=== PATIENT | male | born 1980 | race Two or more races ===

== ENCOUNTER 2016-12-19 01:39 | Emergency (ER) | payer BC ==
[~2016-12-19] VITALS: Ht 170.2 cm; Wt 82.5 kg
[~2016-12-19 01:39] MED LIST: IBUP-1542 PO
[2016-12-19 01:44] VITALS: Ht 170.2 cm; Wt 82.5 kg
[2016-12-19 03:10] LABS: URINE BLOOD (Dip) POC 2+ (NEGATIVE)
[2016-12-19] MEDS ORDERED: TAMS-14 PO (03:35)
--- NOTE | 2016-12-19 04:05 | ERD ---
ER Documentation Chief Complaint Date/Time DATE: 12/19/16 TIME: 04:01 Chief Complaint frequent urination x 3 weeks, seen at another er 3 weeks ago for same. HPI 36-year-old male presents with chief complaint of urinary frequency 3 weeks, but has worsened tonight. He denies dysuria, flank pain, fever, hematuria, penile discharge, and lesions on penis. Was seen at a different ER 3 weeks ago , where a CT scan was done showed that he had renal stones but he was told that they would pass on their own because they were not large in size. He is also seen his PCP multiple times and has been prescribed ciprofloxacin which he is currently on, and tamsulosin. He states that these medications are not providing relief of symptoms. ROS All systems reviewed and are negative except as per history of present illness. Medications Home Meds Active Scripts Tamsulosin Hcl* (Flomax*) 0.4 Mg Cap.er.24h, 0.4 MG PO BID, #30 CAP Prov:Ria Sun PA-C 12/19/16 Ibuprofen* (Motrin*) 600 Mg Tab, 600 MG PO Q6H Y for PAIN AND OR ELEVATED TEMP, #30 Prov:VLADIMIR CANDELARIA MD 03/07/15 Allergies Allergies: Coded Allergies: No Known Allergy (Unverified , 12/19/16) PMhx/Soc Medical and Surgical Hx: pt denies Surgical Hx History of Surgery: No Anesthesia Reaction: No Hx Neurological Disorder: No Hx Respiratory Disorders: No Hx Cardiac Disorders: No Hx Psychiatric Problems: No Hx Miscellaneous Medical Probl: Yes (kidney stones. prostate problems: on ditropan, flomax.) Hx Alcohol Use: No Hx Substance Use: No Hx Tobacco Use: No Smoking Status: Never smoker Physical Exam Vitals Vital Signs Date Time Temp Pulse Resp B/P Pulse Ox O2 Delivery O2 Flow Rate FiO2 12/19/16 01:44 97.8 52 20 123/62 96 Physical Exam GENERAL: Non-toxic. No apparent signs of distress. LUNGS: Clear to auscultation. No accessory muscle use. No wheezing, no crackles. No signs or symptoms of respiratory distress. HEART: Regular rate and rhythm. No murmurs, clicks, rubs or gallops. ABDOMEN: Soft, nontender and nondistended. Bowel sounds positive. No rebound or guarding. No gross peritoneal signs. No Sutherland or McBurney point tenderness. No gross masses. BACK: No midline tenderness, no costovertebral tenderness. EXTREMITIES: No peripheral cyanosis or edema. No focal pain or notable trauma. Full range of motion. Good capillary refill. NEURO: The patient moves all 4 extremities with 5/5 strength. Cranial nerves are grossly intact. Normal mental status for age. Good muscle tone. SKIN: There is no apparent rash, petechiae, erythema or swelling. Good skin turgor. Results 24 hrs Laboratory Tests Test 12/19/16 03:11 Bedside Urine pH (LAB) 7.0 Bedside Urine Protein (LAB) Negative Bedside Urine Glucose (UA) Negative Bedside Urine Ketones (LAB) Negative Bedside Urine Blood 2+ Bedside Urine Nitrite (LAB) Negative Bedside Urine Leukocyte Esterase (L Negative Procedures/MDM Patient has been seen multiple times and has had these symptoms for 3 weeks. His primary care physician prescribed the ciprofloxacin and Tamsulosin. He states he has a known history of kidney stones, and a CT scan was done just 3 weeks ago at a different ER. He denies any dysuria, hematuria, and fevers at this time. He appears to be in no acute distress at this time. He is afebrile with stable vital signs. I explained to the patient that his symptoms are likely to to prostate issues (possible BPH) versus kidney stones. In order a urine dip to rule out infection at this time, but suggested that either way she should follow-up with his PCP for referral to urologist due to duration of symptoms. Awaiting results of urine dip prior to further management. Urine dip: No leukocyte esterase, no nitrite, 2+ urine blood. May be due to history of renal stones. Explained to the patient that he has no signs of infection at this time. I suggested to continue taking his prescriptions prescribed by his PCP, he only has 1 pill of tamsulosin left side provided a refill for this. I suggest he follow with PCP for referral to urologist at this time low suspicion for prostatitis, UTI, pyelonephritis, and STI. Patient still for discharge and outpatient management. Advised to follow-up with PCP in 1 to days. Departure Diagnosis: Primary Impression: Urinary frequency Condition: Good Patient Instructions: Prostate Problems and Related Urinary Symptoms Additional Instructions: Call your primary care doctor TOMORROW for an appointment during the next 1-2 days.See the doctor sooner or return here if your condition worsens before your appointment time. Ria Sun PA-C Dec 19, 2016 04:05
== END 2016-12-19 04:18 | disposition left against medical advice (07) ==
LOC: FTE 01:39
DX: R35.0 Frequency of micturition (principal)
CPT/HCPCS: 81003; 99283

== ENCOUNTER 2017-11-08 23:39 | Emergency (ER) | END 2017-11-08 23:49 | disposition left against medical advice (07) ==

== ENCOUNTER 2018-09-03 06:46 | Emergency (ER) | payer BC ==
[~2018-09-03] VITALS: Ht 167.6 cm; Wt 87.8 kg
[~2018-09-03 06:46] MED LIST changes: +TAMS-14 PO
[2018-09-03 06:49] VITALS: BP 134/79; PULSE 90; RESP 20; Ht 167.6 cm; Wt 87.8 kg
[2018-09-03] MEDS ORDERED: D-ME473S2 PO (07:10)
[2018-09-03] MEDS ORDERED: AZIT250T PO (07:11)
--- NOTE | 2018-09-03 07:23 | ERD ---
ER Documentation Chief Complaint Chief Complaint Complains of cough and sore throat x 2 days HPI Patient is a 38-year-old male who presents to the ER for concerns of a cough and sore throat for the last 3 weeks. Patient states over the last 2 days his cough has become worse. Patient cough is dry in nature. Patient states he tried numerous ubpq-[id number] medications including DayQuil, NyQuil. Patient states he did go an urgent care 2 days ago he was given Tessalon Perles. He states that this medication is not helping with his symptoms. Patient states he was up throughout the night coughing. Patient denies any chest pain, shortness breath, nausea, vomiting, abdominal pain, leg swelling. Patient denies any fevers or chills. No recent travel. No hemoptysis. ROS All systems reviewed and are negative except as per history of present illness. Medications Home Meds Active Scripts Azithromycin* (Zithromax*) 250 Mg Tablet, 250 MG PO .ZPACK DIRECTED, #6 TAB TAKE 500 MG (2 TABS) THE FIRST DAY THEN 250 MG (1 TAB) DAYS 2-5 Prov:ERNESTINE OLVERA PA-C 09/03/18 Dextromethorphan Hb-Promethazine Hcl* (Promethazine DM* Syrup) 473 Ml Syrup, 5 ML PO Q6 PRN for COUGH, #4 OZ Prov:ERNESTINE OLVERA PA-C 09/03/18 Tamsulosin Hcl* (Flomax*) 0.4 Mg Cap.er.24h, 0.4 MG PO BID, #30 CAP Prov:Ria Sun PA-C 12/19/16 Ibuprofen* (Motrin*) 600 Mg Tab, 600 MG PO Q6H PRN for PAIN AND OR ELEVATED TEMP, #30 Prov:VLADIMIR CANDELARIA MD 03/07/15 Allergies Allergies: Coded Allergies: No Known Allergy (Unverified , 09/03/18) PMhx/Soc History of Surgery: No Anesthesia Reaction: No Hx Neurological Disorder: No Hx Respiratory Disorders: No Hx Cardiac Disorders: No Hx Psychiatric Problems: No Hx Miscellaneous Medical Probl: Yes (kidney stones. prostate problems: on ditropan, flomax.) Hx Alcohol Use: Yes (socially) Hx Substance Use: No Hx Tobacco Use: No Smoking Status: Never smoker FmHx Family History: No diabetes Physical Exam Vitals Vital Signs Date Temp Pulse Resp B/P (MAP) Pulse Ox O2 O2 Flow FiO2 Time Delivery Rate 09/03/18 97.4 90 20 134/79 95 06:49 (97) Physical Exam GENERAL: Well-developed, well-nourished male. Appears in no acute distress. HEAD: Normocephalic, atraumatic. EYES: Pupils are equally reactive bilaterally. EOMs grossly intact. No conjunctival erythema. ENT: Moist mucous membranes. No uvula deviation. No kissing tonsils. NECK: Supple. No meningismus. Normal range of motion of the neck. LUNG: Clear to auscultation bilaterally. No rhonchi, wheezing, rales or coarse breath sounds. HEART: Regular rate and rhythm. No murmurs, rubs or gallops EXTREMITIES: Equal pulses bilaterally. No peripheral clubbing, cyanosis or edema. No unilateral leg swelling. NEUROLOGIC: Alert and oriented. Moving all four extremities without any difficulty. Normal speech. Steady gait. SKIN: Normal color. Warm and dry. No rashes or lesions. Results 24 hrs Current Medications Medications Dose Sig/Peggy Start Time Status Last (Trade) Ordered Route PRN Stop Time Admin Dose Reason Admin 10 mg ONCE ONCE 09/03/18 09/03/18 Dexamethasone IM 07:30 09/03/18 07:14 (Decadron) 07:31 Procedures/MDM MEDICAL DECISION MAKING: This is a 38-year-old male presents ER for concerns of sore throat and cough for the last 3 weeks. Patient denied fevers. Patient was afebrile. Patient was not hypoxic. Patient denied recent travel. Cardiac exam was normal. Lung exam was normal. Patient denying chest pain, shortness of breath, leg swelling.. Patient was given Decadron here in the ER. Given these findings, the patients presentation is most consistent with acute bronchitis. I have a much lower clinical concern for acute coronary syndrome, pneumothorax, pneumonia, TB, influenza, pertussis, GERD, allergic rhinitis. Patient was nontoxic, vzs-hxz-rwywgnzck appearing prior to discharge. PRESCRIPTIONS: Z-Emmett, promethazine DM cough syrup DISCHARGE: At this time, patient is stable for discharge and outpatient management. I have instructed the patient to follow-up with his/her primary care physician in 1-2 days. If symptoms persist, patient may need to see a specialist for further examinations and testing. I have instructed the patient to promptly return to the ER at any time for any new or worsening symptoms including increased increased pain, fever, nausea, vomiting, numbness, shortness of breath, weakness, ongoing wheezing, retractions or LOC. The patient and/or family expressed understanding of and agreement with this plan. All questions were answered. Home care instructions were provided. Disclaimer: Inadvertent spelling and grammatical errors are likely due to EHR/ dictation software use and do not reflect on the overall quality of patient care. Also, please note that the electronic time recorded on this note does not necessarily reflect the actual time of the patient encounter. Departure Diagnosis: Primary Impression: Bronchitis Condition: Stable Patient Instructions: Bronchitis, Antiobiotic Treatment (Adult) Referrals: [facility] YOU HAVE RECEIVED A MEDICAL SCREENING EXAM AND THE RESULTS INDICATE THAT YOU DO NOT HAVE A CONDITION THAT REQUIRES URGENT TREATMENT IN THE EMERGENCY DEPARTMENT. FURTHER EVALUATION AND TREATMENT OF YOUR CONDITION CAN WAIT UNTIL YOU ARE SEEN IN YOUR DOCTORS OFFICE WITHIN THE NEXT 1-2 DAYS. IT IS YOUR RESPONSIBILITY TO MAKE AN APPOINTMENT FOR FOLOW- CARE. IF YOU HAVE A PRIMARY DOCTOR --you should call your primary doctor and schedule an appointment IF YOU DO NOT HAVE A PRIMARY DOCTOR YOU CAN CALL OUR PHYSICIAN REFERRAL HOTLINE AT IF YOU CAN NOT AFFORD TO SEE A PHYSICIAN YOU CAN CHOSE FROM THE FOLLOWING [facility] [address] [facility]. [facility] [address] [facility]. [facility] [address] [facility]. [facility] [address] [facility] [address] [facility]. [facility]. [address] [facility]. [facility] YOU HAVE RECEIVED A MEDICAL SCREENING EXAM AND THE RESULTS INDICATE THAT YOU DO NOT HAVE A CONDITION THAT REQUIRES URGENT TREATMENT IN THE EMERGENCY DEPARTMENT. FURTHER EVALUATION AND TREATMENT OF YOUR CONDITION CAN WAIT UNTIL YOU ARE SEEN IN YOUR DOCTORS OFFICE WITHIN THE NEXT 1-2 DAYS. IT IS YOUR RESPONSIBILITY TO MAKE AN APPOINTMENT FOR FOLOW-UP CARE. IF YOU HAVE A PRIMARY DOCTOR --you should call your primary doctor and schedule and appointment IF YOU DO NOT HAVE A PRIMARY DOCTOR YOU CAN CALL OUR PHYSICIAN REFERRAL HOTLINE AT . IF YOU CAN NOT AFFORD TO SEE A PHYSICIAN YOU CAN CHOSE FROM THE FOLLOWING [facility] INSTITUTIONS: [facility] [address] [place] [address] [facility] [address] [place], [place] [id number] [place] [address] [address] [place] [address] Additional Instructions: Call your primary care doctor TOMORROW for an appointment during the next 1-2 days.See the doctor sooner or return here if your condition worsens before your appointment time. ERNESTINE OLVERA PA-C Sep 03, 2018 07:22
[2018-09-03] MEDS ORDERED: DEXAMETHASONE 10 MG/ML 1 ML INJ IM ONE (07:30)
== END 2018-09-03 07:20 | disposition home or self-care (01) ==
LOC: FTE 06:46
DX: J40 Bronchitis, not specified as acute or chronic (principal)
CPT/HCPCS: 96372; 99284; J1100

== ENCOUNTER 2018-12-07 04:55 | Emergency (ER) | payer BC ==
[~2018-12-07] VITALS: Wt 87.1 kg
[~2018-12-07 04:55] MED LIST changes: +AZIT250T PO; +D-ME473S2 PO
[2018-12-07 05:00] VITALS: BP 140/93; PULSE 85; RESP 18
[2018-12-07] MEDS ORDERED: ALBU8.5H8 INH (06:50)
[2018-12-07] MEDS ORDERED: PSEU-79 PO (06:50)
[2018-12-07] MEDS ORDERED: BENZ-6 PO (06:50)
[2018-12-07] MEDS ORDERED: PROM6.2515 PO (06:50)
--- NOTE | 2018-12-07 07:34 | ERD ---
ER Documentation Chief Complaint Chief Complaint ST, CONGESTION X'S 1 DAY, C/O CHEST TIGHTNESS/ITCHING HPI 38-year-old male presenting with cough and sore throat times 1 day. Patient has had some productive cough and denies any fevers. He took loratadine with no alleviation of symptoms. Patient denies any leg swelling. Denies any hemoptysis or pleuritic chest pain. Denies medical problems. NKDA. Surgical history appendectomy. Social history denies ROS All systems reviewed and are negative except as per history of present illness. Medications Home Meds Active Scripts Albuterol Sulfate* (Proair HFA*) 8.5 Gm Hfa.aer.ad, 2 PUFF INH Q4, #1 INHALER Prov:HUGO DISLA PA-C 12/07/18 Promethazine Hcl* (Promethazine Hcl* Syrup) 6.25 Mg/5 Ml Syrup, 6.25 MG PO Q6H PRN for COUGH, #100 ML Prov:HUGO DISLA PA-C 12/07/18 Benzonatate* (Tessalon Perle*) 100 Mg Capsule, 100 MG PO Q8H PRN for COUGH, #30 CAP Prov:HUGO DISLA PA-C 12/07/18 Pseudoephedrine Hcl* (Suphedrin*) 30 Mg Tablet, 30 MG PO Q6 PRN for CONGESTION, #30 TAB Prov:HUGO DISLA PA-C 12/07/18 Azithromycin* (Zithromax*) 250 Mg Tablet, 250 MG PO .MalissaPACK DIRECTED, #6 TAB TAKE 500 MG (2 TABS) THE FIRST DAY THEN 250 MG (1 TAB) DAYS 2-5 Prov:ERNESTINE OLVERA PA-C 09/03/18 Dextromethorphan Hb-Promethazine Hcl* (Promethazine DM* Syrup) 473 Ml Syrup, 5 ML PO Q6 PRN for COUGH, #4 OZ Prov:ERNESTINE OLVERA PA-C 09/03/18 Tamsulosin Hcl* (Flomax*) 0.4 Mg Cap.er.24h, 0.4 MG PO BID, #30 CAP Prov:Ria Sun PA-C 12/19/16 Ibuprofen* (Motrin*) 600 Mg Tab, 600 MG PO Q6H PRN for PAIN AND OR ELEVATED TEMP, #30 Prov:VLADIMIR CANDELARIA MD 03/07/15 Allergies Allergies: Coded Allergies: No Known Allergy (Unverified , 09/03/18) PMhx/Soc History of Surgery: No Anesthesia Reaction: No Hx Neurological Disorder: No Hx Respiratory Disorders: No Hx Cardiac Disorders: No Hx Psychiatric Problems: No Hx Miscellaneous Medical Probl: Yes (kidney stones. prostate problems: on ditropan, flomax.) Hx Alcohol Use: Yes (socially) Hx Substance Use: No Hx Tobacco Use: No FmHx Family History: No diabetes, No coronary disease, No other Physical Exam Vitals Vital Signs Date Temp Pulse Resp B/P (MAP) Pulse Ox O2 O2 Flow FiO2 Time Delivery Rate 12/07/18 97.3 85 18 140/93 96 05:00 (109) Physical Exam GENERAL: The patient is well-appearing, well-nourished, in no acute distress HEENT: Atraumatic. Conjunctivae are pink. Pupils equal, round, and reactive to light. There is no scleral icterus. Tympanic membranes clear bilaterally. Oropharynx clear. NECK: C-spine is soft and supple. There is no meningismus. There is no cervical lymphadenopathy. CHEST: Clear to auscultation bilaterally. There are no rales, wheezes or rhonchi. HEART: Regular rate and rhythm. No murmurs, clicks, rubs or gallops. Procedures/MDM EKG: Rate/Rhythm: 84 bpm Normal Sinus Rhythm QRS, ST, T-waves: No changes consistent w/ acute ischemia Impression: No evidence of ischemia or arrhythmia MDM: 38-year-old male presenting with cough. I have low suspicion for pneumonia. I have low suspicion for respiratory distress or hypoxia. Patient likely has viral cough can be discharged with supportive medications. Vitals are stable and I have low suspicion for asthma exacerbation. I do not feel x- rays or blood work are indicated. Patient is discharged with strict ER precautions and told to follow-up with primary care within 1-2 days for close evaluation. All questions answered at discharge Departure Diagnosis: Primary Impression: Cough Condition: Stable Patient Instructions: Cough, Chronic, Uncertain Cause, (Adult) Referrals: [facility] YOU HAVE RECEIVED A MEDICAL SCREENING EXAM AND THE RESULTS INDICATE THAT YOU DO NOT HAVE A CONDITION THAT REQUIRES URGENT TREATMENT IN THE EMERGENCY DEPARTMENT. FURTHER EVALUATION AND TREATMENT OF YOUR CONDITION CAN WAIT UNTIL YOU ARE SEEN IN YOUR DOCTORS OFFICE WITHIN THE NEXT 1-2 DAYS. IT IS YOUR RESPONSIBILITY TO MAKE AN APPOINTMENT FOR FOLOW-UP CARE. IF YOU HAVE A PRIMARY DOCTOR --you should call your primary doctor and schedule an appointment IF YOU DO NOT HAVE A PRIMARY DOCTOR YOU CAN CALL OUR PHYSICIAN REFERRAL HOTLINE AT IF YOU CAN NOT AFFORD TO SEE A PHYSICIAN YOU CAN CHOSE FROM THE FOLLOWING [facility] [address] [facility] [facility]. [facility] [address] [facility] [address] [facility] [address] [facility]. [facility] [address] [facility]. [facility]. [address] Additional Instructions: FOLLOW UP WITH YOUR PRIMARY CARE PHYSICIAN TOMORROW.Return to this facility if you are not improving as expected. HUGO DISLA PA-C Dec 07, 2018 07:34
== END 2018-12-07 07:13 | disposition home or self-care (01) ==
LOC: FTE 04:55
DX: R05 Cough (principal); R07.89 Other chest pain
CPT/HCPCS: 93005

== ENCOUNTER 2019-04-21 15:15 | Emergency (ER) | payer BC ==
[~2019-04-21] VITALS: Ht 167.6 cm; Wt 86.5 kg
[~2019-04-21 15:15] MED LIST changes: +ALBU8.5H8 INH; +BENZ-6 PO; +PROM6.2515 PO; +PSEU-79 PO
[2019-04-21 15:17] VITALS: BP 130/78; PULSE 79; RESP 18; Ht 167.6 cm; Wt 86.5 kg
== END 2019-04-21 16:15 | disposition home or self-care (01) ==
LOC: FTE 15:15
DX: R30.0 Dysuria (principal)
CPT/HCPCS: 81003; 87591; 99283